=== PATIENT | male | born 1945 | race Caucasian/White ===

== ENCOUNTER 2017-01-26 11:12 | Emergency (ER) | payer OTHER ==
[~2017-01-26 11:12] MED LIST: ASPIRIN81 M1 PO; LASIX40 MG PO; SYNTHROID
[2017-01-26 11:28] LABS: BASOPHIL COUNT 0.1 K/uL (0-0.1); EOSINOPHIL COUNT 0.8 K/uL (0-0.3); HEMATOCRIT 45.7 % (38.0-50.0); IMMATURE GRANULOCYTE (%) 0.4 % (0.0-0.7); IMMATURE GRANULOCYTE COUNT 0.1 K/uL; INSTRUMENT ABS NEUTROPHIL CT 8.2 K/uL; LYMPHOCYTE COUNT 2.5 K/uL (1.0-2.8); MCH 29.6 PG (29.0-34.0); MCHC 32.4 G/DL (30.0-36.0); MCV 91.4 FL (86-99); MEAN PLAT.VOLUME 9.7 uM^3 (9.0-12.4); MONOCYTE (%) 7.5 % (3-12); MONOCYTE COUNT 0.9 K/uL (0-0.8); NEUTROPHIL (%) 65.5 % (45-76); NEUTROPHIL COUNT 8.2 K/uL (1.8-6.4); PLATELET COUNT 325 K/uL (156-360); RBC DIS.WIDTH-CV 12.8 % (11.8-14.6); RBC DIS.WIDTH-SD 42.6 % (39-53); WHITE BLOOD COUNT 12.6 K/uL (4.1-10.2)
[2017-01-26 11:39] LABS: AMYLASE 54 IU/L (1-118); CHLORIDE 101 mEq/L (99-109); POTASSIUM 4.2 mEq/L (3.7-5.4); SODIUM 143 mEq/L (136-147)
[2017-01-26 11:41] LABS: GLUCOSE 124 mg/dL (70-99)
[2017-01-26 11:42] LABS: ANION GAP 12 MEQ/L (2-14)
[2017-01-26 11:44] LABS: GFR ESTIMATE (CALCULATED) > 59 mL/min/
[2017-01-26 11:45] LABS: UREA NITROGEN (BUN) 23 mg/dL (9-23)
[2017-01-26 11:47] LABS: LIPASE 34 U/L (1.0-51.0)
[2017-01-26 11:56] LABS: SERUM ETHYL ALCOHOL < 10 mg/dL
== END 2017-01-26 14:52 | disposition home or self-care (01) ==
LOC: EME 11:12
PROVIDERS: Emergency Medicine
DX: S09.90XA Unspecified injury of head, initial encounter (principal); S20.319A Abrasion of unspecified front wall of thorax, initial encounter; V43.52XA Car driver injured in collision with other type car in traffic accident, initial encounter; J44.9 Chronic obstructive pulmonary disease, unspecified; Z79.82 Long term (current) use of aspirin
CPT/HCPCS: 70450; 71260; 72125; 72129; 72132; 73130; 74177; 80048; 81003; 82150; 83690; 85025; 86850; 86900; 86901; 94640; 99281; 99285; G0480